=== PATIENT | male | born 1965 | race Caucasian/White ===

== ENCOUNTER 2019-05-01 09:57 | Emergency (ER) | payer OTHER ==
--- NOTE | 2019-05-01 10:46 | ER Document Report ---
ED GI/ - General Chief Complaint: Abdominal Pain Stated Complaint: HEADACHE/BODY PAIN Time Seen by Provider: 05/01/19 10:34 Primary Care Provider: BRI JACKSON [NO LOCAL MD] - Follow up as needed Mode of Arrival: Ambulatory Information source: Patient, Relative TRAVEL OUTSIDE OF THE [place] IN LAST 30 DAYS: No - HPI Patient complains to provider of: Abdominal pain - Pt. with c/o 2-3 day h/o diffuse abdominal pain with intermittent fever up to 102 and occasional ALMODOVAR. - Related Data Allergies/Adverse Reactions: No Known Allergies Allergy (Unverified 10/26/11 10:31) Home Medications: bupropion 75mg. alprazolam 0.5mg. ibuprofen 800mg Past Medical History - General Information source: Patient, Relative - Social History Smoking Status: Current Every Day Smoker Frequency of alcohol use: Occasional Family History: Reviewed & Not Pertinent Patient has suicidal ideation: No Patient has homicidal ideation: No - Past Medical History Cardiac Medical History: Reports: Hx Hypertension - Immunizations Hx Diphtheria, Pertussis, Tetanus Vaccination: Yes Review of Systems - Review of Systems Constitutional: See HPI, Fever EENT: No symptoms reported Cardiovascular: No symptoms reported Respiratory: No symptoms reported Gastrointestinal: See HPI, Abdominal pain Musculoskeletal: No symptoms reported Neurological/Psychological: See HPI, Headaches -: Yes All other systems reviewed and negative Physical Exam - Vital signs Vitals: Temp Pulse Resp BP Pulse Ox 98.7 F 95 18 145/83 H 96 05/01/19 10:03 05/01/19 10:03 05/01/19 10:03 05/01/19 10:03 05/01/19 10:03 - General General appearance: Appears well In distress: None - HEENT Head: Normocephalic Pupils: PERRL Pharynx: Normal Neck: Normal - Respiratory Respiratory status: No respiratory distress Breath sounds: Normal - Cardiovascular Rhythm: Regular Heart sounds: Normal auscultation Murmur: No - Abdominal Inspection: Normal Bowel sounds: Normal Tenderness: Tender - min TTP diffusely over epiastrum with BS+ and no peritoneal signs - Extremities General upper extremity: Normal inspection General lower extremity: Normal inspection - Neurological Neuro grossly intact: Yes Cognition: Normal Orientation: AAOx4 Speech: Normal Course - Re-evaluation Re-evalutation: 05/01/19 13:14 Pt's exam unchanged at re-eval -- he has expressed desire to go home - Vital Signs Vital signs: Temp Pulse Resp BP Pulse Ox 98.7 F 95 18 145/83 H 96 05/01/19 10:03 05/01/19 10:03 05/01/19 10:03 05/01/19 10:03 05/01/19 10:03 - Laboratory Result Diagrams: 05/01/19 12:00 05/01/19 10:49 Laboratory results interpreted by me: 05/01/19 05/01/19 05/01/19 10:49 10:49 12:00 WBC 3.1 L RDW 14.1 H Plt Count 83 L Monocytes % (Manual) 20 H Sodium 129.0 L Potassium 3.1 L Chloride 92 L Calcium 8.3 L AST 110 H Lipase 412.5 H Urine Protein 30 H Urine Ketones 20 H Urine Blood SMALL H Urine Urobilinogen 2.0 H - Diagnostic Test Radiology reviewed: Reports reviewed - mesenteric adenitis; pleural thickening and calcifications - EKG Interpretation by Me EKG shows normal: Sinus rhythm Rate: Normal Rhythm: NSR - nsr with non-specific st-t changes without acute change Discharge - Discharge Clinical Impression: Mesenteric adenitis, Hypokalemia Condition: Stable Disposition: HOME, SELF-CARE Instructions: Abdominal Pain ([facility]), Headache ([facility]) Additional Instructions: rest, take meds as prescribed, return if worse Prescriptions: Tramadol HCl [Ultram] 50 mg PO Q6 #20 tablet Forms: Return to Work Referrals: BRI JACKSON [NO LOCAL MD] - Follow up as needed MUNA DONOVAN MD [ACTIVE STAFF] - Follow up as needed
[2019-05-01 11:17] LABS: APPEARANCE,URINE CLEAR; BILIRUBIN,URINE NEGATIVE (NEGATIVE); COLOR,URINE YELLOW; GLUCOSE, URINE NEGATIVE (NEGATIVE); KETONES,URINE 20 mg/dL (NEGATIVE); LEUKOCYTE ESTERASE,URINE NEGATIVE (NEGATIVE); NITRITE,URINE NEGATIVE (NEGATIVE); PROTEIN,URINE 30 mg/dL (NEGATIVE); URINE SPECIFIC GRAVITY 1.013
[2019-05-01 11:31] LABS: ALBUMIN 3.7 g/dL (3.5-5.0); ALKALINE PHOSPHATASE 91 U/L (38-126); ANION GAP 9 (5-19); ASPARTATE AMINO TRANSFERASE 110 U/L (17-59); BILIRUBIN,DIRECT 0.3 mg/dL (0.0-0.4); BILIRUBIN,TOTAL 0.5 mg/dL (0.2-1.3); BLOOD UREA NITROGEN 7 mg/dL (7-20); CALCIUM 8.3 mg/dL (8.4-10.2); CARBON DIOXIDE 28 mmol/L (22-30); CHLORIDE 92 mmol/L (98-107); GLUCOSE 106 mg/dL (75-110); POTASSIUM 3.1 mmol/L (3.6-5.0); TOTAL PROTEIN 6.7 g/dL (6.3-8.2)
[2019-05-01] MEDS ORDERED: POTASSIUM CHLORIDE 10 MEQ CAPSULE.ER PO ONE (11:46)
[2019-05-01 12:13] LABS: HEMOGLOBIN 15.8 g/dL (13.5-17.0); MEAN CORPUSCULAR HEMOGLOBIN 32.9 pg (27.0-33.4); MEAN CORPUSCULAR HGB CONC 34.3 g/dL (32.0-36.0); MEAN CORPUSCULAR VOLUME 96 fl (80-97); RED BLOOD COUNT 4.79 10^6/uL (4.35-5.55); RED CELL DISTRIBUTION WIDTH 14.1 % (11.5-14.0); WHITE BLOOD COUNT 3.1 10^3/uL (4.0-10.5)
--- NOTE | 2019-05-01 12:31 | RADIOLOGY REPORT (SQ) ---
EXAM DESCRIPTION: CT ABD/PELVIS WITH IV ONLY COMPLETED DATE/TIME: 05/01/2019 11:55 am REASON FOR STUDY: abd pain COMPARISON: None. TECHNIQUE: CT scan of the abdomen and pelvis performed using helical scanning technique with dynamic intravenous contrast injection. No oral contrast. Images reviewed with lung, soft tissue, and bone windows. Reconstructed coronal and sagittal MPR images reviewed. Delayed images for evaluation of the urinary system also acquired. All images stored on PACS. All CT scanners at this facility use dose modulation, iterative reconstruction, and/or weight based d osing when appropriate to reduce radiation dose to as low as reasonably achievable (ALARA). [facility]: Dose Right [facility]: CareDose [facility]: Dose Right [facility]: Teradose 4D [facility]: Pressable CONTRAST TYPE AND DOSE: contrast/concentration: Isovue 350.00 mg/ml; Total Contrast Delivered: 100.0 ml; Total Saline Delivered: 72.0 ml RENAL FUNCTION: BUN 7 creatinine 0.6 RADIATION DOSE: CT Rad equipment meets quality standard of care and radiation dose reduction techniq ues were employed. CTDIvol: 13.4 - 17.0 mGy. DLP: 1866 mGy-cm.. LIMITATIONS: None. FINDINGS: LOWER CHEST: There is pleural thickening with dense calcification in the right posterior h emithorax. Small left pleural calcifications are present. LIVER: The liver is mildly hypoattenuating. No mass. SPLEEN: Normal size. No focal lesions. PANCREAS: No masses. No significant calcifications. No adjacent inflammation or peripancreatic fluid collections. Pancreatic duct not dilated. GALLBLADDER: No identified stones by CT criteria. No inflammatory changes to suggest cholecystitis. ADRENAL GLANDS: No significant masses or asymmetry. RIGHT KIDNEY AND URETER: No solid masses. No significant calcifications. No hydronephrosis or hyd roureter. LEFT KIDNEY AND URETER: No solid masses. No significant calcifications. No hydronephrosis or hydr oureter. AORTA AND VESSELS: No aneurysm. No dissection. Renal arteries, SMA, celiac without stenosis. RETROPERITONEUM: There are numerous small periaortic lymph nodes. Scattered mesenteric nodes. BOWEL AND PERITONEAL CAVITY: Mild diverticulosis with no associated acute inflammation. No obvious b owel mass. APPENDIX: Normal. PELVIS: No mass. No free fluid. Normal bladder. ABDOMINAL WALL: No masses. No hernias. BONES: No significant or acute findings. OTHER: No other significant finding. IMPRESSION: 1. There is pleural thickening the dense calcification in the right posterior hemithora x. Small left pleural calcifications are present. Is there history of asbestos exposure? 2. Periaortic and mesenteric nodes are present. Cannot exclude mesenteric adenitis. 3. Mild diverticulosis coli. TECHNICAL DOCUMENTATION: JOB ID: [id number] Quality ID # [id number]: Final reports with documentation of one or more dose reduction techniques (e.g., Au tomated exposure control, adjustment of the mA and/or kV according to patient size, use of iterative reconstruction technique) 2010 [employer]- All Rights Reserved Reading location - IP/workstation name: [email or web address]
[2019-05-01 12:36] LABS: PLATELET COUNT 83 10^3/uL (150-450)
[2019-05-01 12:39] LABS: ABSOLUTE LYMPHOCYTES# (MANUAL) 0.7 10^3/uL (0.5-4.7); ABSOLUTE MONOCYTES # (MANUAL) 0.6 10^3/uL (0.1-1.4); ANISOCYTOSIS SLIGHT; BASOPHILS % (MANUAL) 0 % (0-2); EOSINOPHILS % (MANUAL) 0 % (0-6); LYMPHOCYTES % (MANUAL) 19 % (13-45); MONOCYTES % (MANUAL) 20 % (3-13); PLATELET COMMENT DECREASED; SEGMENTED NEUTROPHILS % (MAN) 58 % (42-78); TOTAL CELLS COUNTED 100
[2019-05-01 13:48] VITALS: BP 149/85
--- NOTE | 2019-05-01 16:51 | EKG REPORT ---
SEVERITY:- BORDERLINE ECG - SINUS RHYTHM PROBABLE LEFT ATRIAL ABNORMALITY BORDERLINE T ABNORMALITIES, LATERAL LEADS : Confirmed by: Inessa Weller MD 01-May-2019 16:50:56
== END 2019-05-01 13:45 | disposition home or self-care (01) ==
LOC: ER 09:57
DX: I88.0 Nonspecific mesenteric lymphadenitis (principal); E87.6 Hypokalemia; J94.8 Other specified pleural conditions; R10.84 Generalized abdominal pain; R10.816 Epigastric abdominal tenderness; R50.9 Fever, unspecified; R51 Headache; I10 Essential (primary) hypertension; F17.200 Nicotine dependence, unspecified, uncomplicated; Z79.899 Other long term (current) drug therapy; Z79.1 Long term (current) use of non-steroidal anti-inflammatories (NSAID)
CPT/HCPCS: 36415; 74177; 80053; 81001; 82150; 83690; 84484; 85025; 93005; 93010; 99284